=== PATIENT | female | born 1985 | race Caucasian/White ===

== ENCOUNTER 2025-04-17 08:37 | Day surgery (SDC) | payer OTHER, SELFPAY ==
[2025-04-17] VITALS (8 sets, daily range): BP systolic 89–111; BP diastolic 56–75; PULSE 59–81; RESP 14–16; TEMP 36.2–36.4; O2SAT 99–100; BMI 21.9
[2025-04-17] MEDS: Lactated Ringers 1,000 ML 15 ML IV (09:05)
[2025-04-17 09:08] LABS: Internal QC Validated? YES +Cl - CLEAR BKGD; Pregnancy, Urine Negative Negative; Record Kit Lot#,Urine Preg 0000980607
--- NOTE | 2025-04-17 09:30 | COLBX_PTH ---
PATIENT: BAYLEE ROJAS LOC: EN U#:[id number] AGE/SX: 39/F ROOM: RE04/17/[address]: Dr. Emerson Delacruz DO : 1985 BED: DIS: 04/17/2025 SPEC #: [id number] RECD: 04/17/25 13:43 STATUS: KOFI ROBERTS #: [id number] JAMES: 04/17/25 09:[address]: Emerson Delacruz DEPT: SURGICAL PATHOLOGY RECD BY: Frederick Sanchez Tissues: A - Cecum, NOS Procedures: Surgery Specimen Level IV HEADER OPERATION: Colonoscopy and polypectomy PRE-OP DIAGNOSIS: Family history of colon cancer TISSUE SUBMITTED: A- Cecal polyp MICROSCOPIC DIAGNOSIS A. Cecum, polyp, biopsy: - Tubular adenoma. MICROSCOPIC DESCRIPTION Slides are reviewed. GROSS DESCRIPTION A. Received in fixative is one container labeled with the patient's name and designated "Cecal polyp." The specimen consists of one irregular fragment of jimenez tissue that measures 0.4 cm. The specimen is totally submitted in one cassette. LA 04/17/2025 CPT:42262
--- NOTE | 2025-04-17 09:34 | PCM.PRE.AN2 ---
ASA Classification* ASA Classification ASA Classification: 1 Assessment & Plan Anesthesia* Anesthesia Assessment Anesthesia Assessment: Discussed sedation and/or anesthesia options, risks, benefits, and alternatives with patient/parents/legal guardian/POA. Questions invited. The patient/parents/legal guardian/POA seems to understand and agrees to proceed with anesthesia plan. Reviewed the physical assessment, medical history, allergy history and patient home medications list prior to surgery/procedure/anesthetic and documented any changes. Performed airway and anesthesia risk assessments. Anesthesia Type Anesthesia Type: MAC History Source History Obtained from:: Patient and Chart Anesthesia Focused Assessment* Temperature: 97.6 F Pulse Rate: 75 Blood Pressure: 108/74 Respiratory Rate: 16 Pulse Ox: 100 Oxygen Delivery Method: Room Air Airway Assessment Mouth opens: >3 cm Mallampati Score: IV Teeth Condition: Caps/Crowns (Patient has a crown right lower molar. 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 When Was Last Pacemaker Check QUESTION #4 FULL TEXT: You/Your Family Experience fever (hyperthermia) with Anesthesia Last Oral Intake Last Oral intake: Last Oral Intake NPO since 05:15 04/17/25 09:06 Meds taken in AM with sips of No 04/17/25 09:06 water? 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 Female Yes 04/16/25 10:16 HX of Motion Sickness Yes 04/16/25 10:16 HX of N/V After Surgery No 04/16/25 10:16 Non-Smoker Yes 04/16/25 10:16 Duration of Surgery greater No 04/16/25 10:16 than 60 minutes Number of Risk Factors 3 04/16/25 10:16 PONV Score Moderate Risk 04/16/25 10:16 Height & Weight Height & Weight: Anesthesia: Height & Weight Height 5 ft 3 in 04/17/25 09:06 Weight: 56.2 kg 04/17/25 09:06 Body Mass Index (BMI) 21.9 04/17/25 09:06 Respiratory Assessment Respiratory Assessment - hoisting pile driving engineer: Respiratory Tract Infection Hx - hoisting pile driving engineer Hx Respiratory Tract Infection No 04/16/25 10:16 STOP Sleep Apnea STOP Sleep Apnea - hoisting pile driving engineer: STOP Sleep Apnea - hoisting pile driving engineer Hx Hypertension No 04/16/25 10:16 Hx Sleep Apnea No 04/16/25 10:16 CPAP BIPAP Do you snore loudly (louder No 04/16/25 10:16 than talking or can be heard Do you often feel tired/ No 04/16/25 10:16 fatigued/ sleepy during daytime? Has anyone observed you stop No 04/16/25 10:16 breathing during sleep? STOP Results Negative 04/16/25 10:16 QUESTION #5 FULL TEXT : Do you snore loudly (louder than talking or can be heard through closed doors)? 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 Specify any problems Hx of Preganancy in last 3 No 04/16/25 10:16 Months Nurse Filling Out Transfusion VCHRISTIN 04/16/25 10:16 & Questions: Date: 04/16/25 04/16/25 10:16 Time: 10:17 04/16/25 10:16 Patient unable to answer at this time (ie. confused, unrespo /Reproduction History /Reproductive History - hoisting pile driving engineer: /Reproductive Hx- hoisting pile driving engineer Hx Now No 04/16/25 10:16 Gestational Age (in weeks): EDC: Hx Hx Para Hx Section SAB No 04/16/25 10:16 Does the father of the baby or his family experience fever w Father of the baby Malignant Hypertension history comment Active Medications Active Medications: Current Medications Generic Name Dose Route Start Last Admin Trade Name Freq PRN Reason Stop Dose Admin Lactated Ringer's 1,000 mls @ 15 mls/hr 04/17/25 09:00 04/17/25 09:05 IV 15 mls/hr .Q48H STALIN Administration PFSH Medical History Non-smoker Home Medications Medication Instructions Recorded Last Taken Type ibuprofen 200 mg tablet 200 mg PO Q6H PRN pain 11/21/24 Unknown History loratadine-pseudoephedrine ER 10 1 tab PO QDAY PRN allergy symptoms 11/21/24 Unknown History mg-240 mg tablet,extended [id number] (Claritin-D 24 Hour) multivitamin (Multiple Vitamins 1 tab PO QDAY 11/21/24 Unknown History tablet) Allergy/AdvReac Type Severity Reaction Status Date / Time No Known Allergies Allergy Verified 04/17/25 09:04 Surgical History Hx of wisdom tooth extraction H/O colonoscopy (~04/2020) H/O breast augmentation (~2007) H/O nasal septoplasty (~2005) Social History Smoking Status: Never smoker Review of Systems (Anesthesia) ROS Narrative System reviewed and no additional complaints, except as documented.
--- NOTE | 2025-04-17 10:21 | HP.PCM_ITS ---
HPI - General General Date of Admission: 04/17/25 Date of Service: 04/17/25 HPI Narrative BAYLEE ROJAS, is a 39 F who presents [ BAYLEE ROJAS, is a 39 F who presents to the office today for establishment with [facility] regarding colon cancer screenings due to strong family history. She reports that her mother was diagnosed with colon cancer at age 64y and passed from complications. She states that she has 1 paternal and 1 maternal grandparent with colon cancer as well. Her older brother has started screenings, unknown of any findings. She reports that she had had hematochezia 5yrs ago without history of hemorrhoids and her PCP ordered a diagnostic colonoscopy at that time. She states no abnormal findings. She denies difficulty chewing and swallowing, cough, throat clearing, heartburn, reflux, nausea, emesis, hematochezia, and melena. She reports occasional bloating with excess gas prior to menses. She will also have events of "doubled-over abdominal cramping pain a day or two before my period." She reports formed complete BM every 2 days and then will have looser stools following. She is not bothered by this. She states that she has had 3 uncomplicated vaginal births. She has had general anesthesia for septoplasty and breast augmentation, "woke up nauseous." She tolerated the anesthesia well from her last colonoscopy. She still has her gallbladder and appendix. PFSH Medical History Non-smoker Home Medications Medication Instructions Recorded Last Taken Type ibuprofen 200 mg tablet 200 mg PO Q6H PRN pain 11/21 Unknown History loratadine-pseudoephedrine ER 10 1 tab PO QDAY PRN all ergy symptoms 11/21/24 Unknown History mg-240 mg tablet,extended [id number] (Claritin-D 24 Hour) multivitamin (Multiple Vitamins 1 tab PO QDAY 11/21/24 Unknown History tablet) Allergy/AdvReac Type Severity Reaction Status Date / Time No Known Allergies Allergy Verified 04/17/25 09:04 Surgical History Hx of wisdom tooth extraction H/O colonoscopy (~04/2020) H/O breast augmentation (~2007) H/O nasal septoplasty (~2005) Social History Smoking Status: Never smoker ROS Constitutional Constitutional: Denies fatigue, fever(s), poor appetite, weight gain or weight loss Gastrointestinal Gastrointestinal: Denies belching, bloating, change in bowel habits, change in stool character, chewing difficulty, coffee ground emesis, constipation, cramping, diarrhea, dyspepsia, dysphagia, early satiety, excessive flatus, fecal incontinence, heartburn, hematemesis, hematochezia, hemorrhoids, loose stools, melena, nausea, odynophagia, rectal bleeding, tenesmus, vomiting or weight changes Vital Signs Vital Signs Vital Signs: 04/17/25 09:06 04/17/25 09:40 Temperature 97.6 F L 97.6 F L Temperature Source Temporal Pulse Rate 75 75 Respiratory Rate 16 16 Blood Pressure 108/74 108/74 Blood Pressure Mean 85 Blood Pressure Source Monitor Blood Pressure Position Semi-Fowlers Blood Pressure Location Left Arm Pulse Ox 100 100 Oxygen Delivery Method Room Air Room Air Weight Weight: 123 lb 14.397 oz Body Mass Index (BMI) 21.9 Physical Exam Const alert, oriented x3, no apparent distress and healthy appearing General Appearance: cooperative GI normal to inspection, nondistended, normoactive bowel sounds, soft to palpation, non-tender and non-distended Percussion: normal to percussion Rectal Exam: deferred Results Lab / Micro Data Labs: Laboratory Results - last 24 hr 04/17/25 09:00: Urine Test Negative Assessment & Plan Assessment/Plan (1) Encounter for colonoscopy in patient with family history of colon cancer: PLAN: Assessment and Plan Assessment and Plan (1) Encounter for colonoscopy in patient with family history of colon cancer: Status: Acute Plan BAYLEE ROJAS, is a 39 F who presents to the office today for establishment with [facility] regarding colon cancer screenings due to strong family history. Discussed care plan with her. * schedule colonoscopy d/t strong family history of CCa * office FU PRN
--- NOTE | 2025-04-17 11:17 | OP.PROVAT_ITS ---
04/17/2025 Unknown Referring Re : Colonoscopy procedure for Becky Wing Dear Dr. Trotter This procedure was performed on Thursday, April 17, 2025. My impressions and recommendations are as follows: Impressions : - The entire examined colon is normal. - One 3 mm polyp in the cecum, removed with a jumbo cold forceps. Resected and retrieved. - The examination was otherwise normal on direct and retroflexion views. Recommendations : - Discharge patient to home. - Resume previous diet. - Continue present medications. - Await pathology results. - Repeat colonoscopy in 5 years for surveillance. My findings are described in the full procedure note, which is enclosed. If I can be of further assistance, please feel free to contact me at . Sincerely, Emerson Delacruz, 04/17/2025 11:16:35 AM This report has been signed electronically.
--- NOTE | 2025-04-17 11:17 | OP.COLON_ITS ---
Patient Name: Becky Wing Procedure Date: 04/17/2025 10:29 AM Date of : 1985 Age: 39 Procedure: Colonoscopy Indications: Screening in patient at increased risk: Colorectal cancer in mother before age 60 Providers: Emerson Delacruz DO Referring MD: Unknown Referring Medicines: Monitored Anesthesia Care Patient Profile: This is a 39 year old female. Refer to note in patient chart for documentation of history and physical. Last Colonoscopy: 5 years ago. Complications: No immediate complications. Procedure: Pre-Anesthesia Assessment: - Prior to the procedure, a History and Physical was performed, and patient medications and allergies were reviewed. The patient is competent. The risks and benefits of the procedure and the sedation options and risks were discussed with the patient. All questions were answered and informed consent was obtained. Patient identification and proposed procedure were verified by the physician in the pre-procedure area. Mental Status Examination: alert and oriented. Airway Examination: normal oropharyngeal airway and neck mobility. Respiratory Examination: clear to auscultation. CV Examination: normal. Prophylactic Antibiotics: The patient does not require prophylactic antibiotics. Prior Anticoagulants: The patient has taken no anticoagulant or antiplatelet agents. ASA Grade Assessment: II - A patient with mild systemic disease. After reviewing the risks and benefits, the patient was deemed in satisfactory condition to undergo the procedure. The anesthesia plan was to use monitored anesthesia care (MAC). Immediately prior to administration of medications, the patient was re-assessed for adequacy to receive sedatives. The heart rate, respiratory rate, oxygen saturations, blood pressure, adequacy of pulmonary ventilation, and response to care were monitored throughout the procedure. The physical status of the patient was re-assessed after the procedure. After I obtained informed consent, the scope was passed under direct vision. Throughout the procedure, the patient's blood pressure, pulse, and oxygen saturations were monitored continuously. The Colonoscope was introduced through the anus and advanced to the cecum, identified by appendiceal orifice and ileocecal valve. The colonoscopy was performed without difficulty. The patient tolerated the procedure well. The quality of the bowel preparation was adequate. The ileocecal valve, appendiceal orifice, and rectum were photographed. Scope In: 10:46:19 AM Scope Withdrawal Time 0 hours 8 minutes 17 seconds Scope Out: 11:00:20 AM Total Procedure Duration Time 0 hours 14 minutes 1 second Findings: The perianal and digital rectal examinations were normal. The colon (entire examined portion) appeared normal. A 3 mm polyp was found in the cecum. The polyp was sessile. The polyp was removed with a jumbo cold forceps. Resection and retrieval were complete. Verification of patient identification for the specimen was done. Estimated blood loss was minimal. The exam was otherwise without abnormality on direct and retroflexion views. Impression: - The entire examined colon is normal. - One 3 mm polyp in the cecum, removed with a jumbo cold forceps. Resected and retrieved. - The examination was otherwise normal on direct and retroflexion views. Recommendation: - Discharge patient to home. - Resume previous diet. - Continue present medications. - Await pathology results. - Repeat colonoscopy in 5 years for surveillance. Procedure Code(s): --- Professional --- 16139, Colonoscopy, flexible; with biopsy, single or multiple CPT copyright 2021 [employer]. All rights reserved. The codes documented in this report are preliminary and upon supply chain logistics manager review may be revised to meet current compliance requirements. Emerson Delacruz DO 04/17/2025 11:16:35 AM This report has been signed electronically. Number of Addenda: 0 Note Initiated On: 04/17/2025 10:29 AM
--- NOTE | 2025-04-17 11:19 | PCM.POST.ANE ---
Anesthesia: Postop Eval I Current Vital Signs Temperature: 97.5 F Pulse Rate: 64 Blood Pressure: 111/75 Respiratory Rate: 14 Pulse Ox: 100 Oxygen Delivery Method: Room Air Assessment Airway patent: Yes Spontaneous unlabored respirations: Yes Mental status: Awake and Calm nausea: No Vomiting: No Anesthesia Complication: No Fluid Hydration Crystalloid volume administer (ml): 600 Total IV fluid infused: 600 Progress Note Anesthesia document: Postop Eval 1 completed: Yes
--- NOTE | 2025-04-17 12:35 | PCM.POSTANE2 ---
Anesthesia Postop Eval I Sum Postop Eval Completion status Anesthesia document: Postop Eval 1 completed: Yes Anesthesia Postop Eval I Summary Anesthesia Postop Eval I Summary: Anesthesia Postop Eval I: Assessment Summary Airway patent Yes 04/17/25 11:20 [email or web address] Spontaneous unlabored Yes 04/17/25 11:20 [email or web address] respirations Mental status Awake,Calm 04/17/25 11:20 [email or web address] nausea No 04/17/25 11:20 [email or web address] Vomiting No 04/17/25 11:20 [email or web address] Anesthesia Postop Eval I: Fluid Summary Crystalloid volume administer 600 04/17/25 11:20 [email or web address] (ml) Colloids volume administered ( ml) Blood Product volume administered (ml) Total IV fluid infused 600 04/17/25 11:20 [email or web address] Anesthesia Postop Eval I: Summary Notes Anesthesia Complication No 04/17/25 11:20 [email or web address] Anesthesia Complication Comment: Post-operative progress note Anesthesia: Postop Eval II Evaluation Mental status: Awake Pain Level: 0 nausea: No Vomiting: No Complications Anesthesia Complication: No
== END 2025-04-17 12:03 | disposition home or self-care (01) ==
LOC: EN 08:41 → AC 08:42
PROVIDERS: Student in an Organized Health Care Education/Training Program; Visit Provider Internal Medicine Gastroenterology
DX: Z12.11 Encounter for screening for malignant neoplasm of colon (principal); Z80.0 Family history of malignant neoplasm of digestive organs; D12.0 Benign neoplasm of cecum
CPT/HCPCS: 45380; 81025; 88305; J2405